=== PATIENT | female | born 1985 | race Caucasian/White ===

== ENCOUNTER → 2017-10-14 | Outpatient (CLI) | payer MEDICARE, OTHER ==
[~2017-10-14] MED LIST: BACL10TA PO; BACLOF10P IMPLANPUMP; BACLOFEN IT ONE; CLAR10CA3 PO; DANT25 PO; DILT31TA PO; FAMO1TAB37 PO; REST15CA PO; TIZA4TAB PO; VITA20003 PO
== END ==
LOC: TOP 08:49
PROVIDERS: ATTEND Physical Medicine & Rehabilitation
DX: Z00.8 Encounter for other general examination (principal)
CPT/HCPCS: 62370; J0475

== ENCOUNTER → 2018-02-26 | Day surgery (SDC) | payer MEDICARE, OTHER ==
[~2018-02-26] VITALS: Ht 170.2 cm; Wt 48.5 kg
[~2018-02-26] MED LIST changes: +ATROPINE SULFATE 1 MG/10 ML SYRINGE ONE; -BACLOFEN IT ONE; +BUPIVACAINE/EPINEPHRINE 0.5% PF 30 ML VIAL ONE; +CHLORHEXIDINE GLUCONATE 2 % 1 PACK (2 CLOTHS) TOPICAL PRN; +GLYCOPYRROLATE 0.2 MG/ML VIAL ONE; +LACTATED RINGER'S 1000 ML IV PRN; +LORazepam 2 MG/ML VIAL ONE; +METOPROLOL TARTRATE 25 MG TAB PO PRN; +POVIDONE IODINE 5% (ANTISEPSIS KIT) 4 APPLICATIONS EACH NARE PRN; +PROMETHAZINE INJ 25 MG/ML VIAL ONE; +SODIUM CHLOR 0.9% 1000 ML INJ 1,000 ML ONE; +SODIUM CHLORID 0.9% 500 ML IV PRN; +VANCOMYCIN HCL 500 MG ON-CALL/NS 100 ML IV SCH; +ceFAZolin 1,000 MG/NS 100 ML IV SCH
[2018-02-26 09:17] LABS: AUTOMATED NEUTROPHIL # 6.8 TH/MM3 (1.8-7.7); BASOPHIL # 0.1 TH/MM3 (0-0.2); BASOPHIL % 0.6 % (0.0-2.0); EOSINOPHIL # 0.1 TH/MM3 (0-0.4); EOSINOPHIL % 0.7 % (0.0-4.0); HEMATOCRIT 45.9 % (35.0-46.0); HEMOGLOBIN 16.1 GM/DL (11.6-15.3); LYMPH % 18.6 % (9.0-44.0); LYMPHOCYTE # 1.7 TH/MM3 (1.0-4.8); MEAN CELL VOLUME 86.2 FL (80.0-100.0); MEAN CORPUSCULAR HEMOGLOBIN 30.3 PG (27.0-34.0); MEAN CORPUSCULAR HGB CONC 35.1 % (32.0-36.0); MEAN PLATELET VOLUME 9.5 FL (7.0-11.0); MONO % 5.9 % (0.0-8.0); MONOCYTE # 0.5 TH/MM3 (0-0.9); NEUT % 74.2 % (16.0-70.0); PLATELET COUNT 208 TH/MM3 (150-450); RED BLOOD COUNT 5.33 MIL/MM3 (4.00-5.30); RED CELL DISTRIBUTION WIDTH 12.9 % (11.6-17.2); WHITE BLOOD COUNT 9.2 TH/MM3 (4.0-11.0)
[2018-02-26 09:18] LABS: BILIRUBIN, URINE NEG (NEG); BLOOD, URINE NEG (NEG); GLUCOSE,URINE NEG (NEG); KETONE, URINE NEG (NEG); NITRITE,URINE NEG (NEG); PH, URINE 6.5 (5.0-8.5); URINE COLOR YELLOW (YELLW/STRAW); URINE LEUKOCYTE ESTERASE NEG (NEG)
[2018-02-26 09:52] LABS: WBC, URINE 0-2 /hpf (0-5)
[2018-02-26 09:53] LABS: RBC, URINE 0-3 /hpf (0-3); SQUAMOUS EPITHELIAL CELL URINE 0-5 /hpf (0-5)
[2018-02-26 14:35] VITALS: PULSE 87
--- NOTE | 2018-02-26 14:46 | MP ---
cc: Lisbet Dominguez MD DATE OF OPERATION: 02/26/2018 PROCEDURE PERFORMED: Replacement of Medtronic SynchroMed pump. PREPROCEDURE DIAGNOSIS: End of battery life, Medtronic SynchroMed pump. POSTPROCEDURE DIAGNOSIS: End of battery life, Medtronic SynchroMed pump. DESCRIPTION OF PROCEDURE: An IV was started in the holding area. The patient was given IV antibiotics. A surgical consent was signed. The surgical site was marked. The patient was taken to the operating room, placed in the supine position, and sedated and monitored by Anesthesia. Then, her abdomen was prepped with ChloraPrep and draped with sterile drapes. The skin over the implanted pump and then the right abdominal area was infiltrated with 0.5% Marcaine containing epinephrine. An incision was made. The implanted pump was removed using blunt and sharp dissection. Then, a new 40 mL Medtronic SynchroMed pump was filled with sterile baclofen on the side table and purged. Once the purge had completed, the intrathecal catheter was disconnected from the old pump and connected to the new pump. Then, the new pump was placed in the subcutaneous pocket with letter the side facing the skin. It was anchored to the underlying tissue using 2-0 Ethibond suture. Then, the incision was irrigated with Betadine. Closure took place with 3-0 Monocryl in the subcuticular tissue and 3-0 nylon on the skin. The incisions were covered with sterile adhesive dressings, and the patient was taken to the recovery room with stable vital signs, neurologically intact. MD JOSE MANUEL Carter/RAMESH , 02:23 PM , 02:44 PM
[2018-02-26 15:55] VITALS: BP 135/85; PULSE 77; RESP 18; TEMP 98; O2SAT 94
== END | disposition home or self-care (01) ==
LOC: PHSDC 07:53
PROVIDERS: ATTEND Pain Medicine Interventional Pain Medicine
DX: Z45.1 Encounter for adjustment and management of infusion pump (principal)
CPT/HCPCS: 00300; 36415; 62362; 81001; 84132; 85025; C1772; J0461; J0690; J2060; J2550; J3370; J7030; J7120